=== PATIENT | male | born 1950 | race Caucasian/White ===

== ENCOUNTER 2020-01-09 09:42 | Outpatient (CLI) | payer OTHER, SELFPAY ==
[2020-01-09 10:21] LABS: Anion Gap 8 mmol/L (8-16); Blood Urea Nitrogen 14 mg/dL (9-20); Carbon Dioxide 28 mmol/L (22-30); Chloride 105 mmol/L (98-107); Cholesterol 115 mg/dL (0-200); Estimated Glomerular Filt Rate > 60; Glucose 117 mg/dL (75-110); HDL Direct 34 mg/dL; Sodium 141 mmol/L (137-145); Triglycerides 192 mg/dL (<150)
[2020-01-09 10:33] LABS: LDL Cholesterol Direct 60 mg/dL
[2020-01-09 10:55] LABS: Creatinine Urine 73.1 mg/dL
[2020-01-09 10:59] LABS: MALB Creatinine Ratio 8.8 mg/g (0-30); Microalbumin Urine Random 6.4 mg/L (0-16.7)
== END 2020-01-09 09:43 | disposition home or self-care (01) ==
PROVIDERS: PCP Family Medicine; Visit Provider Internal Medicine Endocrinology, Diabetes & Metabolism
DX: E11.9 Type 2 diabetes mellitus without complications (principal)
CPT/HCPCS: 36415; 80048; 80061; 82043; 84443

== ENCOUNTER 2020-09-09 07:34 | Outpatient (CLI) | payer OTHER, SELFPAY ==
[2020-09-11 18:16] LABS: Sex Hormone Binding Globulin 59 nmol/L (22-77)
[2020-09-12 07:20] LABS: FSH 11.4 mIU/mL (1.6-8.0); LH 4.3 mIU/mL (1.6-15.2); Prolactin 8.5 ng/mL (***)
[2020-09-12 13:41] LABS: Testosterone Free 36.3 pg/mL (6.0-73.0); Testosterone Total 457 ng/dL (250-1100)
== END 2020-09-09 07:35 | disposition home or self-care (01) ==
LOC: ANHWCLAB 07:39
PROVIDERS: PCP Family Medicine; Visit Provider Internal Medicine Endocrinology, Diabetes & Metabolism
DX: E11.65 Type 2 diabetes mellitus with hyperglycemia (principal); E29.1 Testicular hypofunction
CPT/HCPCS: 36415; 83001; 83002; 84146; 84270; 84402; 84403

== ENCOUNTER → 2020-09-19 00:51 | Outpatient (CLI) | payer OTHER, SELFPAY ==
[2020-09-19 21:02] LABS: SARS-CoV-2 RNA PCR Negative
== END ==
PROVIDERS: PCP Family Medicine; Visit Provider Internal Medicine Critical Care Medicine
DX: Z01.812 Encounter for preprocedural laboratory examination (principal); Z20.822 Contact with and (suspected) exposure to COVID-19
CPT/HCPCS: C9803; U0003; U0005

== ENCOUNTER 2020-09-22 09:06 | Outpatient (CLI) | payer OTHER, SELFPAY ==
--- NOTE | 2020-10-06 17:55 | WPDSLEEPSTUD ---
Sleep Study Date of Study: 09/22/20 Ordering Provider: Mary Castro MD Interpreting Physician: Gabby Laguerre MD Sleep Study Type: Polysomnogram Height: 1.78 m Weight: 73.482 kg Body Mass Index: 23.2 Neck Circumference (inches): 15 [place]: 4 Reason for Sleep Study Snoring, tired in the daytime with excessive daytime sleepiness Sleep History Gonzalo Coleman is a 70 year old man with occasional snoring which is occasionally loud enough that others complain about it. He does not awaken from sleep feeling short of breath or awaken at night with heartburn belching or coughing. He rarely has trouble sleep with a cold. He does not wake up gasping for breath at night. He rarely has breathing problems at night observed by others. He does not sweat excessively at night. He does not notice his heart pounding or beating irregularly at night. He does not fall asleep during the day, does not fall asleep involuntarily and does not fall asleep while driving. He does not fall asleep while exerting physical effort. There is no loss of muscle tone with strong emotion. He does not have daytime difficulties due to excessive sleepiness although he is tired in the day and has excessive sleepiness in the day on occasion. He does not feel paralyzed on waking or falling asleep. He does not have vivid dreamlike scenes upon awakening or falling asleep. He does not feel afraid to go to sleep. He does not have nightmares. He occasionally remembers his dreams. He does not have racing thoughts, feelings of sadness, depression or anxiety. He does not have muscular tension. He does not notice part of his body jerking. He does not kick at night. He does not have crawling and aching feelings in his legs and does not have any kind of leg pain at night. He does not have morning jaw pain. He does not grind his teeth during sleep. He is not bothered by pain during the day. He is not awakened by pain at night. He does not wake up feeling stiff in the morning with sore achy muscles. He does not wake up with pain in the neck and spine. He has testicular hypofunction with decreased libido. Normal bedtime is between 10:00 p.m. and 12 midnight taking 30 minutes to fall asleep. He typically wakes 2-3 times to urinate. He takes Jardiance which contributes to his nocturia through its effects as an osmotic diuretic. He returns to bed and it takes about a 1/2 hour to return to sleep. He wakes the morning at 7:00 a.m.. He sometimes takes a nap in the afternoon or evening. A short nap is not refreshing. He feels good in the morning most days. He feels better in the morning compared other times of day. He always awakens feeling refreshed. He rarely has excessive daytime sleepiness or memory and concentration problems. Habits: Never smoked tobacco. Caffeine 3 servings a day. Alcohol 2 servings per week. No recreational drugs. [facility] Past Medical History Medical History (Updated 10/06/20 @ 18:41 by Gabby Laguerre MD) CAD (coronary artery disease), [place] coronary artery HTN (hypertension) Hypersomnia Type 2 diabetes mellitus with hyperglycemia, without long-term current use of insulin Surgical History Surgical History (Updated 10/06/20 @ 18:26 by Gabby Laguerre MD) History of ankle surgery S/P CABG x 3 Family History Family History Mother Family history of cardiovascular disease Sibling Family history of cardiovascular disease Father Family history of dementia Social History Social History Years smoked: 3 Smoking status: Former smoker Tobacco type: cigarettes Second hand tobacco smoke exposure: No Smoking end date: 05/30/1968 Alcohol intake: current Medications Home Medications Medication Instructions Recorded Confirmed Type ascorbate calcium-bioflavonoid tablet PO 05/21/19 02/12/20 History 1,000 mg-200 mg ta
[2020-10-06 18:51] VITALS: BMI 23.2
== END 2020-09-22 09:07 | disposition home or self-care (01) ==
LOC: ANHCSM 09:07
PROVIDERS: PCP Family Medicine; Visit Provider Internal Medicine Endocrinology, Diabetes & Metabolism
DX: G47.10 Hypersomnia, unspecified (principal); R06.83 Snoring; G25.81 Restless legs syndrome; G47.34 Idiopathic sleep related nonobstructive alveolar hypoventilation
CPT/HCPCS: 95810

== ENCOUNTER 2020-11-03 10:45 | Outpatient (RCR) | payer OTHER, SELFPAY ==
[2020-10-15 11:11] VITALS: BMI 23.6
[2020-10-15 11:17] VITALS: BMI 23.6
== END 2020-12-29 12:05 | disposition home or self-care (01) ==
LOC: ANHDMC 10:45
PROVIDERS: PCP Family Medicine; Visit Provider Internal Medicine Endocrinology, Diabetes & Metabolism
DX: E11.65 Type 2 diabetes mellitus with hyperglycemia (principal); Z71.3 Dietary counseling and surveillance; Z71.89 Other specified counseling
CPT/HCPCS: 97802; G0108

== ENCOUNTER 2021-02-12 10:10 | Outpatient (CLI) | payer OTHER, SELFPAY ==
[2021-02-12 19:46] LABS: Basophils Percent Auto 0.5 % (0.2-1.2); Eosinophils Absolute Auto 0.1 K/mm3 (0-0.3); Eosinophils Percent Auto 1.4 % (0-4.4); Hematocrit 53.5 % (42.0-52.0); Hemoglobin 17.8 g/dL (14.0-18.0); Immature Granulocyte Absolute 0.02 K/mm3 (0.00-0.031); Immature Granulocyte Percent A 0.3 % (0-0.5); Lymphocytes Absolute Auto 1.44 K/mm3 (0.9-3.2); Lymphocytes Percent Auto 22.9 % (18.3-44.2); Mean Corpuscular HGB Conc 33.3 g/dl (32-36); Mean Corpuscular Hemoglobin 30.5 pg (26-34); Mean Corpuscular Volume 91.8 fl (80-100); Monocytes Absolute Auto 0.5 K/mm3 (0.1-0.6); Monocytes Percent Auto 7.3 % (2.6-8.5); Neutrophils Absolute Auto 4.3 K/mm3 (1.3-6.7); Neutrophils Percent Auto 67.6 % (45.5-73.1); Platelet Count Result 150 k/mm3 (150-375); Red Blood Count 5.83 M/mm3 (4.6-6.20); Red Cell Distribution Width 12.8 % (11.5-14.5); White Blood Count 6.3 K/mm3 (4.5-10.0)
[2021-02-12 20:11] LABS: Alanine Aminotransferase 29 U/L (4-50); Albumin Level 4.9 g/dL (3.5-5.1); Alkaline Phosphatase 84 U/L (38-126); Anion Gap 13 mmol/L (8-16); Aspartate Amino Transferase 29 U/L (17-59); Bilirubin,Total 1.2 mg/dL (0.2-1.3); Blood Urea Nitrogen 18 mg/dL (9-20); Calcium 10.2 mg/dL (8.4-10.2); Carbon Dioxide 26 mmol/L (22-30); Chloride 106 mmol/L (98-107); Cholesterol 137 mg/dL (0-200); Estimated Glomerular Filt Rate > 60; Glucose 138 mg/dL (65-110); HDL Direct 41 mg/dL; Potassium 4.3 mmol/L (3.4-5.0); Sodium 145 mmol/L (137-145); Triglycerides 211 mg/dL (<150)
[2021-02-12 20:21] LABS: Hemoglobin A1C 6.9 % (<5.7)
[2021-02-12 20:23] LABS: LDL Cholesterol Direct 59 mg/dL
[2021-02-12 20:35] LABS: Creatinine Urine 61.4 mg/dL
[2021-02-12 20:39] LABS: Prostate Specific Antigen 0.4 ng/mL (< OR = 4.0)
[2021-02-12 20:40] LABS: MALB Creatinine Ratio 10.1 mg/g (0-30); Microalbumin Urine Random 6.2 mg/L (0-16.7)
[2021-02-12 21:05] LABS: Vitamin D 25 Hydroxy 73.6 ng/mL
== END 2021-02-12 10:11 | disposition home or self-care (01) ==
PROVIDERS: PCP Family Medicine; Visit Provider Family Medicine
DX: Z12.5 Encounter for screening for malignant neoplasm of prostate (principal); I25.10 Atherosclerotic heart disease of native coronary artery without angina pectoris; R79.89 Other specified abnormal findings of blood chemistry; I10 Essential (primary) hypertension; E11.65 Type 2 diabetes mellitus with hyperglycemia; Z51.81 Encounter for therapeutic drug level monitoring; Z79.899 Other long term (current) drug therapy
CPT/HCPCS: 36415; 80053; 80061; 82043; 82306; 83036; 84153; 85025; G0103

== ENCOUNTER 2021-04-08 02:35 | Day surgery (SDC) | payer OTHER, SELFPAY ==
[2021-03-26 12:43] VITALS: BMI 25.9
--- NOTE | 2021-04-07 13:36 | PM.HPGS ---
History of Present Illness History of Present Illness Consent: Risks, benefits, and alternatives have been discussed and questions answered. Patient agrees to proceed with procedure. Chief complaint: neoplasm screening Narrative: Gonzalo Coleman is a 71 year old male referred for colon cancer screening Review of Systems Review of Systems: All systems reviewed & are unremarkable except as noted in HPI and below PMFSH Past Medical History Medical History CAD (coronary artery disease), [place] coronary artery HTN (hypertension) Hypersomnia Type 2 diabetes mellitus with hyperglycemia, without long-term current use of insulin Surgical History Surgical History History of ankle surgery S/P CABG x 3 Family History Family History Mother Family history of cardiovascular disease Sibling Family history of cardiovascular disease Father Family history of dementia Social History Social History Smoking packs per day: 1 Smoking cigarettes per day: 20.0 Years smoked: 4 Smoking pack-years: 4.00 Smoking status: Former smoker Tobacco type: cigarettes Second hand tobacco smoke exposure: No Smoking end date: 05/30/1968 Alcohol intake: current Drinks per week: 1 Living arrangements: with family Spiritual care concerns: No Meds Home Medications and Allergies Home Medications Medication Instructions Recorded Confirmed Type aspirin 81 mg tablet,delayed 81 mg PO DAILY 05/21/19 03/26/21 History release cholecalciferol (vitamin D3) 125 5,000 unit PO DAILY 05/21/19 03/26/21 History mcg (5,000 unit) disintegrating tablet ginseng 100 mg capsule 100 mg PO DAILY 05/21/19 03/26/21 History multivitamin 1 tablet PO DAILY 05/21/19 03/26/21 History rosuvastatin 20 mg tablet 20 mg PO DAILY 05/21/19 03/26/21 History glucosamine [id number] 1 tablet PO DAILY 02/12/20 03/26/21 History christofer 1,500 mg-400 unit-100 mg tablet glipizide 2.5 mg tablet, extended 2.5 mg PO DAILY #180 tablet 09/03/20 03/26/21 Rx release 24 hr lancets See Rx Instructions .ROUTE 09/10/20 03/26/21 Rx .COMPLEX #100 ea amlodipine 10 mg tablet 10 mg PO DAILY #90 tablet 11/07/20 03/26/21 Rx empagliflozin 10 mg tablet 5 mg PO DAILY tablet 02/12/21 03/26/21 History blood sugar diagnostic #100 each 03/02/21 Rx lisinopril 10 mg tablet 10 mg PO DAILY #90 tablet 03/02/21 03/26/21 Rx metoprolol tartrate 25 mg tablet 25 mg PO BID #180 tablet 03/25/21 03/26/21 Rx Allergies Allergy/AdvReac Type Severity Reaction Status Date / Time codeine Allergy Unknown Nausea and Verified 04/08/21 11:26 Vomiting metformin Allergy Unknown Diarrhea Verified 04/08/21 11:26 Exam Resp: Auscultation: clear to auscultation bilaterally Cardio: Rate: regular rate Rhythm: regular rhythm GI: GI Palp: Yes Soft to palpation and No Tenderness to palpation present (GI) Assessment and Plan Assessment and plan (1) Colon cancer screening: Code(s): Z12.11 - Encounter for screening for malignant neoplasm of colon Status: Acute Assessment and Plan: Colonoscopy with possible biopsy or polypectomy or cautery or injection of substances.
[2021-04-08] MEDS: LACTATED RINGERS 1,000 ML 150 ML IV CONT (11:30)
[2021-04-08 11:37] LABS: Glucose Point of Care 143 mg/dl (65-105)
--- NOTE | 2021-04-08 12:16 | WPDANESEPPF ---
Anes - Initial Pre Proc Eval Procedure: Operation Date: 04/08/21 12:30 Proposed Procedures p Screening Colonoscopy - Barrett Kraus MD Date/Time: 04/08/21 12:16 Surgeon: Barrett Kraus MD Pre Op Diagnosis: neoplasm screening Patient Data Age: 71 Gender: M Height: 1.78 m Weight: 75.1 kg Allergies Allergy/AdvReac Type Severity Reaction Status Date / Time codeine Allergy Unknown Nausea and Verified 04/08/21 11:26 Vomiting metformin Allergy Unknown Diarrhea Verified 04/08/21 11:26 Home Medications Medication Instructions Recorded Confirmed Type aspirin 81 mg tablet,delayed 81 mg PO DAILY 05/21/19 03/26/21 History release cholecalciferol (vitamin D3) 125 5,000 unit PO DAILY 05/21/19 03/26/21 History mcg (5,000 unit) disintegrating tablet ginseng 100 mg capsule 100 mg PO DAILY 05/21/19 03/26/21 History multivitamin 1 tablet PO DAILY 05/21/19 03/26/21 History rosuvastatin 20 mg tablet 20 mg PO DAILY 05/21/19 03/26/21 History glucosamine [id number] 1 tablet PO DAILY 02/12/20 03/26/21 History christofer 1,500 mg-400 unit-100 mg tablet glipizide 2.5 mg tablet, extended 2.5 mg PO DAILY #180 tablet 09/03/20 03/26/21 Rx release 24 hr lancets See Rx Instructions .ROUTE 09/10/20 03/26/21 Rx .COMPLEX #100 ea amlodipine 10 mg tablet 10 mg PO DAILY #90 tablet 11/07/20 03/26/21 Rx empagliflozin 10 mg tablet 5 mg PO DAILY tablet 02/12/21 03/26/21 History blood sugar diagnostic #100 each 03/02/21 Rx lisinopril 10 mg tablet 10 mg PO DAILY #90 tablet 03/02/21 03/26/21 Rx metoprolol tartrate 25 mg tablet 25 mg PO BID #180 tablet 03/25/21 03/26/21 Rx Laboratory Tests 04/08/21 11:34 POC Capillary Glucose 143 mg/dl H mg/dl (65-105) Patient hx anesthesia problems: none Family hx anesthesia problems: none Results Review: All pre-operative results and documents have been reviewed as part of the pre-operative evaluation. PMFSH Past Medical History Medical History CAD (coronary artery disease), [place] coronary artery HTN (hypertension) Hypersomnia Type 2 diabetes mellitus with hyperglycemia, without long-term current use of insulin Surgical History Surgical History History of ankle surgery S/P CABG x 3 Family History Family History Mother Family history of cardiovascular disease Sibling Family history of cardiovascular disease Father Family history of dementia Social History Social History Smoking packs per day: 1 Smoking cigarettes per day: 20.0 Years smoked: 4 Smoking pack-years: 4.00 Smoking status: Former smoker Tobacco type: cigarettes Second hand tobacco smoke exposure: No Smoking end date: 05/30/1968 Alcohol intake: current Drinks per week: 1 Living arrangements: with family Spiritual care concerns: No Anes - Eval Final PreProcedure Day of Procedure 04/08/21 12:16 Patient weight: normal Heart: regular rate and rhythm Lungs: clear to auscultation and normal air movement Airway: Mallampati scale class II Neurological: alert and oriented Last oral intake: >/= 8 hours ASA classification: III Emergent: no Anesthetic plan: proceed Anesthesia type and monitoring: general GIVS Results Review: All pre-operative results and documents have been reviewed as part of the pre-operative evaluation. Informed Consent: The patient's anesthetic plan and its attendant risks and benefits were discussed with the patient/family/POA. Questions were solicited and answers provided to the satisfaction of the patient/family/POA.
[2021-04-08 12:37] VITALS: BP 93/57; PULSE 70; RESP 15; O2SAT 99
[2021-04-08 12:47] VITALS: BP 141/78; PULSE 67; RESP 29; O2SAT 100
[2021-04-08 12:57] VITALS: BP 138/81; PULSE 65; RESP 23; O2SAT 100
== END 2021-04-08 13:08 | disposition home or self-care (01) ==
PROVIDERS: PCP Family Medicine; Visit Provider Internal Medicine Gastroenterology
PROC: 0DJD8ZZ Inspection of Lower Intestinal Tract, Via Natural or Artificial Opening Endoscopic (ICD-10-PCS; CPT 45378; principal; 2021-04-08 12:30)
DX: Z12.11 Encounter for screening for malignant neoplasm of colon (principal); K57.30 Diverticulosis of large intestine without perforation or abscess without bleeding; I25.10 Atherosclerotic heart disease of native coronary artery without angina pectoris; I10 Essential (primary) hypertension; E11.9 Type 2 diabetes mellitus without complications; Z95.1 Presence of aortocoronary bypass graft; Z87.891 Personal history of nicotine dependence; Z79.82 Long term (current) use of aspirin; Z79.84 Long term (current) use of oral hypoglycemic drugs
CPT/HCPCS: G0121; 82948; J2704; J7120

== ENCOUNTER 2023-01-12 07:55 | Outpatient (CLI) | payer OTHER, SELFPAY | END 2023-01-12 07:56 | disposition home or self-care (01) | LOC: ANHAUDASC 07:56 | PROVIDERS: PCP Family Medicine; Visit Provider Family Medicine | DX: H91.90 Unspecified hearing loss, unspecified ear (principal) | CPT/HCPCS: 92557; 92567 ==

== ENCOUNTER 2023-07-13 10:00 | Outpatient (RCR) | payer OTHER, SELFPAY | END 2023-08-30 23:59 | disposition home or self-care (01) | LOC: ANHAUDASC 10:00 | PROVIDERS: PCP Family Medicine; Visit Provider Family Medicine | DX: Z46.1 Encounter for fitting and adjustment of hearing aid (principal) | CPT/HCPCS: 99199; V5261 ==

== ENCOUNTER 2024-12-20 07:38 | Outpatient (CLI) | payer OTHER, SELFPAY ==
--- NOTE | 2024-12-20 | EST_ITS ---
Patient Info Name: Gonzalo Coleman Age: 74 years : 1950 Gender: Male Ht: 70 in Wt: 168 lbs BSA: 1.95 m2 Exam Date: 12/20/2024 8:24 AM Patient Status: O Admit Date: 12/20/2024 Exam Type: CA stress buddy w NM A regadenoson stress test was performed. Staff Referring Physician: Herman Julian MD Attending Provider: Herman Julian MD Exercise Technologist: Charlene Teran Exercise Physician: Aakash Hameed Summary 1. No abnormal ST-T wave changes with lexiscan. 2. Please correlate with nuclear medicine images, reported separately. Protocol: Lexiscan Stress ECG Details Stage: REST Duration (min): 0 min : 48 sec HR (bpm): 72 SBP (mmHg): 142 DBP (mmHg): 82 Stage: REST Duration (min): 8 min : 11 sec HR (bpm): 75 SBP (mmHg): 142 DBP (mmHg): 82 Stage: STAGE 1 Duration (min): 0 min : 59 sec HR (bpm): 80 SBP (mmHg): 168 DBP (mmHg): 74 Stage: RECOVERY Duration (min): 1 min : 0 sec HR (bpm): 93 SBP (mmHg): 168 DBP (mmHg): 74 Stage: RECOVERY Duration (min): 2 min : 0 sec HR (bpm): 86 SBP (mmHg): 170 DBP (mmHg): 74 Stage: RECOVERY Duration (min): 3 min : 0 sec HR (bpm): 86 SBP (mmHg): 165 DBP (mmHg): 77 Stage: RECOVERY Duration (min): 3 min : 3 sec HR (bpm): 88 SBP (mmHg): 165 DBP (mmHg): 77 Rest HR: 75 bpm Peak HR: 95 bpm Rest Sys BP: 142 mmHg Peak Sys BP: 170 mmHg Max Pred HR: 145 bpm % Max Pred HR: 66 % Target HR: 123 bpm Max RPP: 16,150 bpm*mmHg Total Time: 1 min : 0 sec Rest Abdalla BP: 82 mmHg Peak Abdalla BP: 74 mmHg Total Dose: 0.4 mg Resting ECG Sinus rhythm. Right bundle branch block with repolarization changes. Low limb lead voltage. Stress ECG No ischemic ST-T wave changes. Arrhythmias Occasional premature atrial contractions. Report Signatures
--- NOTE | ~2024-12-20 | NM_ITS ---
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 The patient was infused intravenously with Lexiscan (Regadenoson). Then, 32.0 mCi Tc99 m tetrofosmin (Myoview) was administered intravenously, and stress images were obtained, initially in the supine position with repeat post stress images obtained in the prone position. Data was reconstr ucted into short axis and horizontal and vertical long axis SPECT images. Gated SPECT images were als o obtained. COMPARISON: None. FINDINGS: There is a region of moderate reversible decreased perfusion at the basilar inferior segmen t portion of the adjacent mid inferior segments consistent with ischemia. Artifactual regions of decr eased perfusion involving portions of the anterior and anterolateral lazaro on the post stress imaging obtained in the supine position which normalized with prone imaging. There is normal left ventricul ar chamber size and ejection fraction measuring >70%. There is paradoxical septal motion and suggesti on of right ventricular enlargement. IMPRESSION: 1. Region moderate reversible ischemia at the basilar inferior and portions of the adjacent mid infer ior segments. No nonreversible infarct. 2.Left ventricular ejection fraction measuring >70%. 3. Paradoxical septal motion. 4. Suggestion of right ventricular enlargement. Reviewed, dictated and finalized at location A. IMPRESSION: 1. Region moderate reversible ischemia at the basilar inferior and portions of the adjacent mid inferior segments. No nonreversible infarct. 2.Left ventricular ejection fraction measuring >70%. 3. Paradoxical septal motion. 4. Suggestion of right ventricular enlargement.
--- OUTSIDE RECORDS SUMMARY | 2024-12-20 07:42 | XMS_ITS | Clinical Summary ---
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 Name Role Phone Kimo Barakat MD Primary Care Provider [phone] Allergies Active Allergy Reactions Criticality Noted Date Comments Codeine Nausea only,Nausea And Vomiting Low 06/30 Medications aspirin 81 mg tablet take 1 tablet by oral route every day 0 0 4 Active multivitamin tablet tablet take 1 tablet by oral route every day with food 0 0 5 Active amLODIPine (NORVASC) 10 mg tablet take 1 tablet by oral route every day 90 3 5 Active metoprolol (LOPRESSOR) 25 mg tablet take 1 tablet by ORAL route 2 times every day 180 3 4 Active lisinopril (PRINIVIL,ZESTR IL) 10 mg tablet take 1 tablet by oral route every day 90 3 5 Active cholecalciferol (VITAMIN D-3) 5,000 unit capsule Take 1 capsule (5,000 Units total) by mouth daily Active turmeric, bulk, 95 % powder Active vit C/E/Zn/coppr/gonzalo tein/zeaxan (PRESERVISION AREDS-2 ORAL) Take by mouth Ac tive Jardiance 25 mg tablet Take 0.5 tablets (12.5 mg total) by mouth every morning 1 Active zinc 50 mg tablet Take by mouth Active C-Zn-K.ginseng- darrion hips-hrb62 75 mg tablet Take by mouth Ginseng Complex Active glucosamine-cho ndroitin 250-200 mg tablet Take by mouth Osteo bi-flex Active UNABLE TO FIND Total Beets 650 mg in the evening Active rosuvastatin (CRESTOR) 20 mg tablet Take 1 tablet (20 mg total) by mouth every other day 90 tablet 1 5 Active Additional Information Patient taking differently:20 mg oralDaily, Reported on 10/30/2024 glipiZIDE XL (GLUCOTROL XL) 5 mg 24 hr tablet Take 1 tablet (5 mg total) by mouth daily 5 Active Active Problems Problem Noted Date Diagnosed Date Pulmonary hypertension 10/30/2024 RBBB 11/15/2018 Premature atrial contractions 11/15/2018 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 Coronary artery disease invo lving [place] coronary artery of [place] heart without angina pectoris 11/08/2016 Statin intolerance 11/08/2016 Type 2 diabetes mellitus 10/21/2015 Overview (09/03/2016): DM type 2 with diabetic dyslipidemia Hx of CABG 10/18/2013 Overview (09/03/2016): S/P CABG (coronary artery bypass graft) Mixed diabetic hyperlipidemi a associated with type 2 diabetes mellitus (CMS/HCC) 10/18/2013 Overview (09/03/2016): Dyslipidemia Hypertension associated with diabetes 10/18/2013 Overview (09/03/2016): HTN (hypertension), benign Diabetes mellitus 10/18/2013 Overview (09/03/2016): DM (diabetes mellitus) Encounters Date Type Department Care Team Description 12/04/2024 Results Follow-Up [facility] Cardiology [address] [facility] [address] [place] [phone] Krista Cleary MD Transthoracic Echo (TTE) Complete W Doppler/CF 12/03/2024 11:15 AM CDT Ancillary Procedure [facility] Cardiology [address] [place] [phone] RBBB; Hypertension associated with diabetes (HCC); Coronary artery disease involving [place] coronary artery of [place] heart without angina pectoris; Pulmonary hypertension (HCC) 10/30/2024 10:15 AM CDT Office Visit [facility] Cardiology [address] [place] [address] Krista Cleary MD RBBB (Primary Dx); Type 2 diabetes mellitus with hyperglycemia, unspecified whether retirement insulin use (HCC); Premature atrial contractions; Mixed diabetic hyperlipidemia associated with type 2 diabetes mellitus (CMS/HCC) (HCC); Hypertension associated with diabetes (HCC); Coronary artery disease involving [place] coronary artery of [place] heart without angina pectoris; Statin myopathy; Pulmonary hypertension (HCC) from Last 3 Months Immunizations Immunization Administration Dates Next Due Influenza, Trivalent, IM (MDV) 04/26/2010 Td, adsorbed 04/26/2010 Medical History Medical History Date Comments Hx Other Medical 1992 eye surgery Hx Other Medical 2006 mulqueeny Hyperlipidemia Hyperlipidemia Diabetes mellitus (HCC) Diabetes Hypertension Hypertension Family History Medical History Relation Name Comments Hyperlipidemia Brother 2 Hyperlipidemi a; Brain cancer Brother 3 Brain tumor; Other Brother 4 Alive and well; Alzheimer's disease Father Alzheime r's Disease; Cause of : Alzheimer's Disease/Alzheimer's disease; Heart disease Mother Heart disease; Valvular heart disease Mother Valvu lar heart disease; Other Sister 2 Alive and well; Relation Name Status Comments Brother 1 Alive Brother 2 Brother 3 Brother 4 Father (Age 69) Mother Sister 1 Alive Sister 2 Social History Tobacco Use Types Packs/Day Years Used Date Smoking Tobacco: Former Cigarettes Smokeless Tobacco: Never Tobacco Cessation:Counseling Given: Not Answered Alcohol Use Standard Drinks/Week Comments Yes 3 (1 standard drink = 0.6 oz pur e alcohol) Sex and Gender Information Value Date Recorded Sex Assigned at Not on file Legal Sex 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 Gender Identity Not on file Sexual Orientation Not on file Obstetrics History Last Filed Vital Signs Vital Sign Reading Time Taken Comments Blood Pressure 130/68 10/30/2024 10:11 AM CDT Pulse 84 10/30/2024 10:11 AM CDT Temperature 36.4 C (97.5 F) 04/30/2020 9:13 AM 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 Respiratory Rate - - Oxygen Saturation 97% 10/30/2024 10:11 AM CDT Inhaled Oxygen Concentration - - Weight 76.2 kg (168 lb) 10/30/2024 10:11 AM CDT Height 177.8 cm (5' 10) 10/30/2024 10:11 AM CDT Body Mass Index 24.11 10/30/2024 10:11 AM CDT Plan of Treatment Health Maintenance Due Date Last Done Comments Albumin Creatinine Ratio, Urine 1950 Colon Cancer Screening-Colonoscopy 1950 Depression Screening 1950 Fall Risk Assessment 1950 Hemoglobin A1C 1950 Hepatitis C Screening 1950 eGFR 1950 Dilated Eye Exam 1950 Foot Exam 1950 Hepatitis B Screening 1967 Zoster Vaccine (1 of 2) 1999 DTaP/Tdap/Td Vaccine (1 - Tdap) 04/27/2010 0 Abdominal Aortic Aneurysm (A AA) Screen 2014 Well Visit 65+ 2014 Pneumococcal vaccine 65+ (2 of 2 - PCV) 07/14/2014 07/14/2013 Influenza Vaccine (#1) 2025 0, 07/14/2013, 04/26/2010 Lipid Panel 10/30/2025 10/30/2024, 09/29, 10/12/2022, Additional history exists Procedures Procedure Name Priority Date/Time Associated Diagnosis Comments TRANSTHORACIC ECHO (TTE) COMPLETE W DOPPLER/CF WO CONTRAST Routine 12/03/2024 12:10 PM CDT RBBB Hypertension associated with diabetes (HCC) Coronary artery disease involving [place] coronary artery of [place] heart without angina pectoris Pulmonary hypertension (HCC) ELECTROCARDIOGRAM REPORT Routine 025 12:54 PM CDT RBBB Coronary artery disease involving [place] coronary artery of [place] heart without angina pectoris POCT LIPID PANEL Routine 10/30/2024 10:0 8 AM CDT Mixed diabetic hyperlipidemia associated with type 2 diabetes mellitus (CMS/HCC) (HCC) Coronary artery disease involving [place] coronary artery of [place] heart without angina pectoris from Last 3 Months Results * TRANSTHORACIC ECHO (TTE) COMPLETE W DOPPLER/CF WO CONTRAST (12/03/2024 12:10 PM CDT) EF Mod BP 71 % CONS SCIMAGE Anatomical Region Laterality Modality Ultrasound 12/03/2024 11:2 6 AM CDT Narrative 12/03/2024 12:47 PM CDT [facility] Cardiology [address], [place] [address] [address] [facility] [address], [place] [address] P:[phone] P:[phone] Echocardiographic Report Patient Name: CYRUS COLEMAN L : 1950 Study Date: 12/03/2024 11:26:49 AM Gender: M 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 With Strain Analysis. 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 MEASUREMENTS: 2D/MM Value Range Doppler Value Range EF Mod BP 71 % [ 52 - 72 ] MIRIAM Vmax 2.97 cm2 [ 2.00 - 4.00 ] LV GLS -16.70 % AV Mean PG 3 mmHg LVIDd 2D 3.89 cm [ 4.20 - 5.80 ] AV Peak Berto 1.13 m/s [ 1.00 - 1.70 ] LVIDs 2D 2.29 cm [ 2.50 - 4.00 ] AV Peak PG 5 mmHg LVPWd 2D 1.16 cm [ 0.60 - 1.00 ] AV VTI 20.45 cm IVSd 2D 1.30 cm [ 0.60 - 1.00 ] LVOT Diam 2.03 cm [ 1.70 - 2.10 ] AoR Diam 2D 3.72 cm [ 3.10 - 3.70 ] LVOT Peak Berto 1.03 m/s [ 0.70 - 1.10 ] LA Volume 46.59 ml [ 18.00 - 58.00 ] LVOT VTI 22.78 cm LA Volume Index 24 cc/m2 [ 16 - 28 ] MV E Peak Berto 0.84 m/s [ 0.60 - 1.30 ] RA Volume 28.33 ml MV A Peak Berto 0.72 m/s [ 1.00 - 1.20 ] MV Decel Time 188 msec [ 104 - 258 ] PV Peak Berto 0.86 m/s [ 0.40 - 0.80 ] TR Peak Berto 2.57 m/s [ 1.00 - 2.80 ] TR Peak PG 26 mmHg RVSP 31.00 mmHg [ 10.00 - 36.00 ] RV S` 7.69 mmHg Lateral E` 0.08 m/s [ 0.10 - 0.15 ] Septal E` 0.06 m/s [ 0.08 - 0.15 ] E` 0.07 m/s E/E` 12 Tapse 1.81 cm [ 1.71 - 5.00 ] 2D/MM Value Range Doppler Value Range - FINDINGS: Interpretation Site: Exam was interpreted at [facility]. Left Ventricle: Normal left ventricular systolic function. No focal wall motion abnormalities. Normal left ventricular size. Mild concentric left ventricular hypertrophy. There is pseudonormal diastolic dysfunction Grade II. Ejection fraction is measured at 71 %. Global Longitudinal Strain is -17 %. GLS is abnormal. Right Ventricle: Normal right ventricular size. Normal right ventricular systolic function. Left Atrium: The left atrium is normal in size. Right Atrium: The right atrium is normal in size. Atrial Septum: Normal atrial septum. Mitral Valve: Normal appearance of the mitral valve. No mitral valve regurgitation is seen. There is no hemodynamically significant mitral stenosis by Doppler. Aortic Valve: No evidence of hemodynamically significant aortic stenosis by Doppler. Aortic cusps appear mildly sclerotic. Trileaflet aortic valve. No aortic regurgitation. Tricuspid Valve: Normal appearance of the tricuspid valve. Estimated peak RVSP is 31 mmHg. Mild tricuspid regurgitation. Pulmonic Valve: Normal appearance of the pulmonic valve. Mild pulmonic regurgitation. Pericardium: Normal pericardium with no significant pericardial effusion. Aorta: Sinus of Valsalva is normal. IVC: Normal size and normal respiratory collapse consistent with normal right atrial pressure (<5 mmHg). Pulmonary Artery: Normal pulmonary artery size. CONCLUSIONS: Normal left ventricular systolic function. No focal wall motion abnormalities. Normal left ventricular size. Mild concentric left ventricular hypertrophy. There is pseudonormal diastolic dysfunction Grade II. Ejection fraction is measured at 71 %. Global Longitudinal Strain is -17 %. GLS is abnormal. Estimated peak RVSP is 31 mmHg. Mild tricuspid regurgitation. Mild pulmonic regurgitation. Electronically Signed By: Dr. 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 With Strain Analysis. INDICATIONS: I45.10 Unspecified right bundle-branch block, E11.59 Type 2 diabetesmellitus with other circulatory complications, I15.2 Hypertension secondary to endocrinedisorders, I25.10 Atherosclerotic heart disease of [place] coronary artery without anginapectoris, and I27.20 Pulmonary hypertension, unspecified. MEASUREMENTS: 2D/MM Value Range Doppler ValueRange EF Mod BP 71 % [ 52 - 72 ] MIRIAM Vmax 2.97cm2 [ 2.00 - 4.00 ] LV GLS -16.70 % AV Mean PG 3mmHg LVIDd 2D 3.89 cm [ 4.20 - 5.80 ] AV Peak Berto 1.13m/s [ 1.00 - 1.70 ] LVIDs 2D 2.29 cm [ 2.50 - 4.00 ] AV Peak PG 5mmHg LVPWd 2D 1.16 cm [ 0.60 - 1.00 ] AV VTI 20.45cm IVSd 2D 1.30 cm [ 0.60 - 1.00 ] LVOT Diam 2.03cm [ 1.70 - 2.10 ] AoR Diam 2D 3.72 cm [ 3.10 - 3.70 ] LVOT Peak Berto 1.03m/s [ 0.70 - 1.10 ] LA Volume 46.59 ml [ 18.00 - 58.00 ] LVOT VTI 22.78cm LA Volume Index 24 cc/m2 [ 16 - 28 ] MV E Peak Berto 0.84m/s [ 0.60 - 1.30 ] RA Volume 28.33 ml MV A Peak Berto 0.72m/s [ 1.00 - 1.20 ] MV Decel Time 188 msec [ 104 - 258 ] PV Peak Berto 0.86 m/s [ 0.40 - 0.80 ] TR Peak Berto 2.57 m/s [ 1.00 - 2.80 ] TR Peak PG 26 mmHg RVSP 31.00 mmHg [ 10.00 - 36.00 ] RV S` 7.69 mmHg Lateral E` 0.08 m/s [ 0.10 - 0.15 ] Septal E` 0.06 m/s [ 0.08 - 0.15 ] E` 0.07 m/s E/E` 12 Tapse 1.81 cm [ 1.71 - 5.00 ] 2D/MM Value Range Doppler ValueRange - FINDINGS: Interpretation Site: Exam was interpreted at [facility]. Left Ventricle: Normal left ventricular systolic function. No focal wall motionabnormalities. Normal left ventricular size. Mild concentric left ventricular hypertrophy. Thereis pseudonormal diastolic dysfunction Grade II. Ejection fraction is measuredat 71 %. Global Longitudinal Strain is -17 %. GLS is abnormal. Right Ventricle: Normal right ventricular size. Normal right ventricular systolicfunction. Left Atrium: The left atrium is normal in size. Right Atrium: The right atrium is normal in size. Atrial Septum: Normal atrial septum. Mitral Valve: Normal appearance of the mitral valve. No mitral valve regurgitation isseen. There is no hemodynamically significant mitral stenosis by Doppler. Aortic Valve: No evidence of hemodynamically significant aortic stenosis by Doppler.Aortic cusps appear mildly sclerotic. Trileaflet aortic valve. No aorticregurgitation. Tricuspid Valve: Normal appearance of the tricuspid valve. Estimated peak RVSP is 31 mmHg.Mild tricuspid regurgitation. Pulmonic Valve: Normal appearance of the pulmonic valve. Mild pulmonic regurgitation. Pericardium: Normal pericardium with no significant pericardial effusion. Aorta: Sinus of Valsalva is normal. IVC: Normal size and normal respiratory collapse consistent with normal rightatrial pressure (<5 mmHg). Pulmonary Artery: Normal pulmonary artery size. CONCLUSIONS: Normal left ventricular systolic function. No focal wall motionabnormalities. Normal left ventricular size. Mild concentric left ventricular hypertrophy. Thereis pseudonormal diastolic dysfunction Grade II. Ejection fraction is measuredat 71 %. Global Longitudinal Strain is -17 %. GLS is abnormal. Estimated peak RVSP is 31 mmHg. Mild tricuspid regurgitation. Mild pulmonic regurgitation. Electronically Signed By: Dr. Nathan Biggs [facility] 12/03/2024 12:46:34 PM CDT us Krista Cleary MD CV ECHO PROCEDURES Final Result * Electrocardiogram Report (10/30/2024 12:54 PM CDT) Krista Cleary MD ECG ORDERABLES Final Res ult * (ABNORMAL) POCT lipid panel (10/30/2024 10:08 AM CDT) Cholesterol, POC 120 <200 MG/DL HDL, POC 22(A) >=40 mg/dL Triglycerides, POC 293(A) <=149 mg/dL LDL Cholesterol POC 40 <=129 mg/dL Chol/HDL Ratio, POC 1.8 NONE Non-HDL Cholesterol, POC 98 NONE mg/dL Cholesterol Total, POC 120 30 - 199 mg/dL Capillary blood 10/30/2024 1 0:08 AM CDT Krista Cleary MD POINT OF CARE TEST ORDERA BLES Final Result from Last 3 Months Insurance [facility] [place] [id number] Care Teams Rolled Oats Mill Operator Relationship Specialty Start Date End Date Kimo Barakat MD PCP - General Family Practice 10/22/21
--- OUTSIDE RECORDS SUMMARY | 2024-12-20 07:42 | XMS_ITS | Referral Summary ---
Author Organization [facility] [place] [address] [place] [address] Address [address] [facility] [address] [place] [address] Care Team Providers Care Director Project Management Name Role Phone Kimo Barakat MD Primary Care Provider [phone] Encounters Date Type Department Care Team Description 12/04/2024 Results Follow-Up [facility] Cardiology [address] [place] [phone] Krista Cleary MD Transthoracic Echo (TTE) Complete W Doppler/CF 12/03/2024 11:15 AM CDT Ancillary Procedure [facility] Cardiology [address] [place] [address] [address] [place] [phone] RBBB; Hypertension associated with diabetes (HCC); Coronary artery disease involving [place] coronary artery of [place] heart without angina pectoris; Pulmonary hypertension (HCC) 10/30/2024 10:15 AM CDT Office Visit [facility] Cardiology [address] [place] [address] [place] [phone] Krista Cleary MD RBBB (Primary Dx); Type 2 diabetes mellitus with hyperglycemia, unspecified whether prison insulin use (HCC); Premature atrial contractions; Mixed diabetic hyperlipidemia associated with type 2 diabetes mellitus (CMS/HCC) (HCC); Hypertension associated with diabetes (HCC); Coronary artery disease involving [place] coronary artery of [place] heart without angina pectoris; Statin myopathy; Pulmonary hypertension (HCC) from Last 3 Months Allergies Active Allergy Reactions Criticality Noted Date [...] myopathy 05/10/2018 Coronary artery disease invo lving [place] coronary artery of [place] heart without angina pectoris 11/08/2016 Statin intolerance [...] mellitus 10/18/2013 Overview (09/03/2016): DM (diabetes mellitus) Immunizations Immunization Administration Dates Next Due Influenza, Trivalent, IM (MDV) 04/26/2010 Td, adsorbed 04/26/2010 Social History Tobacco Use Types Packs/Day Years Used Date Smoking Tobacco: Former Cigarettes Smokeless Tobacco: Never Tobacco Cessation:Counseling Given: Not Answered Alcohol Use Standard Drinks/Week Comments Yes 3 (1 standard drink = 0.6 oz pur e alcohol) Sex and Gender Information Value Date Recorded Sex Assigned at Not on file 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 Gender Identity Not on file Sexual Orientation Not on file Last Filed Vital Signs Vital Sign Reading Time Taken Comments Blood Pressure 130/68 10/30/2024 10:11 AM CDT Pulse 84 10/30/2024 10:11 AM CDT Temperature 36.4 C (97.5 F) 04/30/2020 9:13 AM LOAN INSPECTOR Respiratory Rate - - Oxygen Saturation 97% 10/30/2024 10:11 AM CDT Inhaled Oxygen Concentration - - Weight 76.2 kg (168 lb) 10/30/2024 10:11 AM CDT Height 177.8 cm (5' 10) 10/30/2024 10:11 AM CDT Body Mass Index 24.11 10/30/2024 10:11 AM CDT Plan of Treatment Not on file Procedures Procedure Name Priority Date/Time Associated Diagnosis Comments TRANSTHORACIC ECHO (TTE) COMPLETE W DOPPLER/CF WO CONTRAST Routine 12/03/2024 12:10 PM CDT RBBB Hypertension associated with diabetes (HCC) Coronary artery disease involving [place] coronary artery of [place] heart without angina pectoris Pulmonary hypertension (HCC) ELECTROCARDIOGRAM REPORT Routine 025 12:54 PM CDT RBBB Coronary artery disease involving [place] coronary artery of [place] heart without angina pectoris POCT LIPID PANEL Routine 10/30/2024 10:0 8 AM CDT Mixed diabetic hyperlipidemia associated with type 2 diabetes mellitus (CMS/HCC) (HCC) Coronary artery disease involving [place] coronary artery of [place] heart without angina pectoris from Last 3 Months Results * TRANSTHORACIC ECHO (TTE) COMPLETE W DOPPLER/CF WO CONTRAST (12/03/2024 12:10 PM CDT) EF Mod BP 71 % CONS SCIMAGE Anatomical Region Laterality Modality Ultrasound 12/03/2024 11:2 6 AM CDT Narrative 12/03/2024 12:47 PM CDT [facility] Cardiology [address] [facility] [address], [place] [address] [address] [facility] [address], [place] [address] P:[phone] P:[phone] Echocardiographic Report Patient Name: CYRUS COLEMAN L : 1950 Study Date: 12/03/2024 11:26:49 AM Gender: M Aged Or Disabled Carer: Aster Lujan)(DC), [facility] Location: [facility] Provider: KRISTA CLEARY Height(Cm): 178 BSA: [...] endocrine disorders, I25.10 Atherosclerotic heart disease of [place] coronary artery without angina pectoris, and I27.20 [...] FINDINGS: Interpretation Site: Exam was interpreted at [facility]. Left Ventricle: Normal left ventricular systolic function. [...] regurgitation. Electronically Signed By: Dr. Nathan Biggs [facility] 12/03/2024 12:46:34 PM CDT Procedure Note Nathan Biggs MD - 12/03/2024 [facility] Cardiology [address] [facility] [address], [place] [address] [address] [facility] [address] [place], [place] [address] P:[phone] P:[phone] Echocardiographic Report Patient Name: CYRUS COLEMAN L : 1950 Study Date: 12/03/2024 11:26:49 AM Gender: M Aged Or Disabled Carer: Aster Lujan)(CT), [facility] Location: [facility] Provider: KRISTA CLEARY Height(Cm): 178 BSA: 1.94 Weight(Kg): 76.2 Heart Rate: 57 BP: 130 / 68 Quality: Good Order Provider: KRISTA CLEARY PROCEDURES: Echocardiographic Report: Transthoracic echocardiogram with complete 2D, M-Mode, and color Dopplerexamination. With Strain Analysis. INDICATIONS: I45.10 Unspecified right bundle-branch block, E11.59 Type 2 diabetesmellitus with other circulatory complications, I15.2 Hypertension secondary to endocrinedisorders, I25.10 Atherosclerotic heart disease of [place] coronary artery without anginapectoris, and I27.20 Pulmonary [...] FINDINGS: Interpretation Site: Exam was interpreted at [facility]. Left Ventricle: Normal left ventricular systolic function. [...] regurgitation. Electronically Signed By: Dr. Nathan Biggs [facility] 12/03/2024 12:46:34 PM CDT Krista Cleary MD CV ECHO PROCEDURES Final [...] Final Result from Last 3 Months Insurance [facility] [place] [facility] [place] Care Teams Director Project Management Relationship Specialty Start Date End Date Kimo Barakat MD PCP - General Family Practice 10/22/21
--- OUTSIDE RECORDS SUMMARY | 2024-12-20 07:42 | XMS_ITS | Clinical Summary ---
Author Organization [facility] Address [address] [place] [address] Care Team Providers Care Ammonium Nitrate Crystallizer Name Role Phone Laura Dsouza RN Unavailable [phone] Lb Kelley MD Unavailable Unavailable Dev Lester MD Primary Care Provider [phone] Source Comments [facility],non-owned Affiliates and Associated Physician Practices is amultiple site organization consisting of ambulatory clinics and hospital sitesin [place], [place], [place] and [place]. This disclosure is being madepursuant to the Care Everywhere program and may not contain all information available regarding this patient. Last updated 18.[facility] Allergies Active Allergy Reactions Criticality Noted Date Comments Codeine Nausea and/or Vomiting 07/10/2013 Medications * Be aware that medications may not be up to date on this document. Alwaysverify current medications with the patient. aspirin 81 MG chew tablet Take 81 mg by mouth 2 times daily after meals. Active vitamin D, cholecalciferol, 1000 UNITS tablet Take 2,000 Units by mouth once daily. Active multivitamin daily (THERAGRAN) tablet Take 1 Tab by mouth daily with food. Active Biotin 2.5 MG tablets Take 2 mg by mouth once daily. Active hydrocodone-acet aminophen (NORCO) 5-325 MG tablet Take 1-2 Tabs by mouth every 6 hours as needed. 65 Tab 0 07/17/2013 Active metoprolol tartrate IR (LOPRESSOR) 25 MG tablet Take 0.5 Tabs by mouth 2 times daily. 60 Tab 3 07/17/2013 Active pravastatin (PRAVACHOL) 80 MG tablet Take 1 Tab by mouth at bedtime. 30 Tab 3 07/17/2013 Active lisinopril (PRINIVIL;ZESTRI L) 5 MG tablet Take 1 Tab by mouth at bedtime. 30 Tab 11 07/18/2013 Active acarbose (PRECOSE) 25 MG tablet Take 25 mg by mouth every 7 days. 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 Gender Identity Not on file Sexual Orientation Not on file Last Filed Vital Signs Vital Sign Reading Time Taken Comments Blood Pressure 140/80 08/29/2013 2:38 PM CDT Pulse 75 08/29/2013 2:38 PM CDT Temperature 36.6 C (97.8 F) 07/18/2013 7:30 AM COMBINATION BUILDING INSPECTOR Respiratory Rate 15 08/29/2013 2:38 PM CDT Oxygen Saturation 98% 08/29/2013 2:38 PM CDT Inhaled Oxygen Concentration 40% 07/12/2013 4 :15 PM COMBINATION BUILDING INSPECTOR Weight 73.9 kg (163 lb) 08/29/2013 2:38 PM CDT Height 177.8 cm (5' 10) 08/29/2013 2:38 PM CDT Body Mass Index 23.39 08/29/2013 2:38 PM CDT Plan of Treatment Health Maintenance Due Date Last Done Comments COLOGUARD (AGES 45-75) - COL ON CA SCREENING 1949 COLON MONITORING 1949 COLONOSCOPY - COLON CA SCREENING 1949 CT COLONOGRAPHY - COLON CA SCREENING 1949 Colorectal Cancer Screening 1949 FIT - COLON CA SCREENING 1949 FLEX SIG - COLON CA SCREENING 1949 HEPATITIS C SCREENING 03/06/1967 DTAP/TDAP/TD VACCINES (1 - Tdap) 1968 ZOSTER VACCINE (1 of 2) 1999 PNEUMOCOCCAL VACCINE 50+ (2 of 2 - PCV) 07/14/2014 07/14/2013 COVID-19 VACCINE (1 - 2024-2 5 season) 2024 Respiratory Syncytial Virus (RSV) Vaccine Pt: or over 60 yrs (1 - 1-dose 75+ series) 2024 DEPRESSION SCREENING 05/30/2024 INFLUENZA VACCINE (#1) 2025 07/14/2013 HEPATITIS B VACCINE Aged Out No longe r eligible based on patient's age to complete this topic HIB VACCINE Aged Out No longer eligi ble based on patient's age to complete this topic HPV VACCINE Aged Out No longer eligi ble based on patient's age to complete this topic MENINGOCOCCAL (Group B) VACC INE SHARED DECISION-MAKING Aged Out No longer eligibl e based on patient's age to complete this topic MENINGOCOCCAL GROUPS A/C/Y/W VACCINE Aged Out No longer eligible b ased on patient's age to complete this topic Insurance [employer] Advance Directives * Full Code (Latest Code Status on File) Date Activated Date Inactivated Comments 07/12/2013 12:29 PM 07/18/2013 1:13 PM * Full Code Date Activated Date Inactivated Comments 07/10/2013 5:47 PM 07/12/2013 12:29 PM Care Teams Ammonium Nitrate Crystallizer Relationship Specialty Start Date End Date Dev Lester MD [address] [id number] PCP - General Family Medicine 08/29/13 Laura Dsouza RN Seo Team Lead 07/11/13 Lb Kelley MD Garment Manufacturer Cardiovascular Disease 07/11/13
--- OUTSIDE RECORDS SUMMARY | 2024-12-20 07:42 | XMS_ITS | Clinical Summary ---
Author Organization [facility] Care Team Providers Care Hansard Reporter Name Role Phone Unavailable Primary Care Provider Unavailabl e Social History Tobacco Use Types Packs/Day Years Used Date Smoking Tobacco: Never Assessed Sex and Gender Information Value Date Recorded Sex Assigned at Not on file Legal Sex Male 9:33 PM CDT Gender Identity Not on file Sexual Orientation Not on file Plan of Treatment Health Maintenance Due Date Last Done Comments Hepatitis C Virus (HCV) Screening 1950 TdaP Immunization 1949 Cologuard 1994 Colonoscopy 1994 Colorectal Cancer Screening 1994 Immunochemical Fecal Occult Blood 1994 Pneumococcal Immunization (5 0+ years) (1 of 1 - PCV) 1999 Zoster Immunization (1 of 2) 1999 SARS-COV-2 Immunization ( - 2023- season) 2024 Respiratory Syncytial Virus (RSV) Immunization (Adult) (1 - 1-dose 75+ series) 2024 Influenza Immunization (#1) 2025 Hepatitis B Immunization Aged Out No longer eligible based on patient's age to complete this topic Human Papillomavirus (HPV) Immunization Aged Out No longer eligible b ased on patient's age to complete this topic Meningococcal Immunization (ACWY) Aged Out No longer eligible based on patient's age to complete this topic Rotavirus Immunization Aged Out No lo nger eligible based on patient's age to complete this topic
--- OUTSIDE RECORDS SUMMARY | 2024-12-20 07:43 | XMS_ITS | Encounter Summary ---
Author Organization [facility] Healthcare Address [address] [place] [address] Care Team Providers Care Medical Illustrator Name Role Phone Kimo Barakat MD Primary Care Provider [phone] Encounter Details Date Type Department Care Team (Latest Contact Info) Description 12/04/2024 Results Follow-Up [facility] Medical Group Cardiology [address] [facility] [address] [place] [phone] Herman Julian MD [address] [facility] [address] [place] [address] Transthoracic Echo (TTE) Complete W Doppler/CF Social History Tobacco Use Types Packs/Day Years Used Date Smoking Tobacco: Former Cigarettes Smokeless Tobacco: Never Alcohol Use Standard Drinks/Week Comments Yes 3 (1 standard drink = 0.6 oz pur e alcohol) Sex and Gender Information Value Date Recorded Sex Assigned at Not on file 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
--- OUTSIDE RECORDS SUMMARY | 2024-12-20 07:43 | XMS_ITS | Continuity of Care Document ---
Author Organization [facility] Address [address] [place] [address] [place] [phone] Phone Care Team Providers Care Log Manager Name Role Phone Heraclio OD OD, Andry [...] Providers Copied on Encounter Office/outpa tient Visit, [facility] [address] [place] [address] [address], [place], [place], [address], [place] tel:[phone] SEC 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 [address], [place], [address], [place]. tel:[phone] Referring Provider: Andry Pulliam OD P, [address] [place], [address] . tel:[phone] Office/outpa [place]ient Visit, [facility], [address], [place], [place], [id number], [place] tel:[phone] SEC [facility] No Information 2 Heraclio OD Andry. [address], [place], [address], [place]. tel:[phone] Referring Provider: Andry Pulliam OD P, [address] [facility], [place], [address] . tel:[phone] Office/outpa tient Visit, [facility], [address] [place] [address] [address], [place], [place], [address], tel:[phone] SEC [facility] No Information 8-201 0 Mulqueeny OD Andry. [address] [facility], [place], [address], [place]. tel:[phone] Referring Provider: Andry Pulliam OD P, [address] [facility], [place], [address] . tel:[phone] Office/outpa tient Visit, [facility], [address] [place] [address] [address], [place], [place], [address], [place] tel:[phone] SEC [facility] No Information 7-200 9 Mulqueeny OD Andry. [address] [facility], [place], [place], [address], [place]. tel:[phone] Referring Provider: Andry Pulliam OD P, [address] [facility], [place], [address] . tel:[phone] Office/outpa tient Visit, [facility], [address] [place] [address] [address], [place], [place], [address], [place] tel:[phone] SEC [facility] [place] No Information 8-200 9 Mulqueeny OD Andry. [address] [facility], [place], [address], [place]. tel:[phone] Referring Provider: Andry Pulliam OD P, [address] [facility], [place], [address] . tel:[phone] Office/outpa tient Visit, [facility], [address], [place], [place], [address], [place] tel:[phone] SEC [facility] No Information Mar-1 7-200 8 Mulqueeny OD Andry. [address] [facility], [place], [address], [place]. tel:[phone] Referring Provider: Andry Pulliam OD P, [address] [facility], [place], [address] . tel:[phone] [facility], [address], [place], [place], [address], [place] tel:[phone] SEC [facility] No Information 8-200 8 Mulqueeny OD Andry. [address] [facility], [place], [address], [place]. tel:[phone] Referring Provider: Andry Pulliam OD P, [address] [facility], [place], [address] . tel:[phone] [facility], [address], [place], [place], [address], [place] tel:[phone] SEC [facility] No Information 1 9-200 8 Mulqueeny OD Andry. [address] [facility], [place], [address], [place]. tel:[phone] Referring Provider: Andry Pulliam OD P, [address] [facility], [place], [address] . tel:[phone] [facility], [address], [place], [place], [address], [place] tel:[phone] SEC [facility] No Information September-0 6-200 8 Mulqueeny OD Andry. [address] [facility], [place], [address], [place]. tel:[phone] Referring Provider: Andry Pulliam OD P, [address] [facility], [place], [address] . tel:[phone] [facility], [address], [place], [place], [address], [place] tel:[phone] SEC [facility] No Information 3-200 8 Mulqueeny OD Andry. [address] [facility], [place], [place], [address], [place]. tel:[phone] Referring Provider: Andry Pulliam OD P, [address] [facility], [place], [address] . tel:[phone] [facility], [address], [place], [place], [address], [place] tel:[phone] SEC [facility] No Information 7-200 8 Mulqueeny OD Andry. [address], [place], [address], [place]. tel:[phone] Referring Provider: Andry Pulliam OD P, [address] [facility], [place], [address] . tel:[phone] [facility], [address], [place], [place], [address], [place] tel:[phone] SEC [facility] No Information 4200 8 Mulqueeny OD Andry. [address] [facility], [place], [place], [address], [place]. tel:[phone] Referring Provider: Andry Pulliam OD P, [address] [facility], [place], [address] . tel:[phone] [facility], [address], [place], [place], [address], [place] tel:[phone] SEC [facility] No Information Oct-2 2-200 7 Mulqueeny OD Andry. [address], [place], [address], [place]. tel:[phone] Referring Provider: Andry Tyvinod OD P, [address] [place], [address] . tel:[phone] [facility], [address], [place], [place], [address], [place] tel:[phone] SEC [facility] No Information Oct-0 2-200 7 Mulqueeny OD Andry. [address], [place], [address], [place]. tel:[phone] Referring Provider: Andry Pulliam OD P, [address] [place], [address] . tel:[phone] [facility], [address], [place], [place], [address], [place] tel:[phone] SEC [facility] No Information Aug-2 1-200 7 Mulqueeny OD Andry. [address], [place], [address], [place]. tel:[phone] [facility], [address], [place], [place], [address], [place] tel:[phone] SEC [facility] No Information Aug-0 1-200 7 Mulqueeny OD Andry. [address], [place], [address], [place]. tel:[phone] [facility], [address], [place], [place], [address], [place] tel:[phone] SEC [facility] No Information Reinaldo-2 4-200 7 Mulqueeny OD Andry. [address], [place], [address], . tel:[phone] [facility], [address] [place], [place] [address], [place], [place], [address], tel:[phone] SEC [facility] No Information [address] [facility] . [address] [place], [place], [address], . tel:[phone] Referring Provider: Andry Day, [address] [place], [address] . tel:[phone] [facility], [address] [place] [address] [address], [place], [place], [address], tel:[phone] SEC [facility] No Information 7 Heraclio Wilde. [address], [place], [address], . tel:[phone] Family History Family Member Type Diagnosis Age At Onset Aunt Problem (finding) glaucoma Payers Payer name Insurance type Covered democrat ID Authordenise elkins(s) Naeemtna [id number] Social History Type Description Quantity Date Captured [...]
== END 2024-12-20 07:39 | disposition home or self-care (01) ==
PROVIDERS: PCP Family Medicine; Visit Provider Internal Medicine Cardiovascular Disease
DX: I25.10 Atherosclerotic heart disease of native coronary artery without angina pectoris (principal)
CPT/HCPCS: 78452; 93017; A9502; J2785

== ENCOUNTER 2025-01-25 07:44 | Outpatient (CLI) | payer OTHER, SELFPAY ==
--- OUTSIDE RECORDS SUMMARY | 2013-05-15 09:30 | XMS_ITS | Continuity of Care Document ---
[facility] [place] [facility] [place] [id number] [place] [address] [place] [phone] Phone Care Team Providers Care Fusion Juncture Grinder Name Role Phone Heraclio OD OD, Andry Unavailable Unavailabl e Allergies, Adverse Reactions, Alerts Substance Reaction Status Criticality codeine nausea Active No Information Medications Medication Instructions Dosage Effective Dates (start - stop) Status Comments amlodipine 10 mg tablet take 1 tablet (10MG) by oral route every day 10 MG - Active lisinopril 10 mg tablet take 1 tablet (10MG) by oral route every day 10 MG - Active simvastatin 5 mg tablet take 1 tablet (5MG) by oral route every day in the evening 5 MG - Active Procedures Procedure Date Office/outpatient Visit, Est Fundus Photography W/ Report Refraction Office/outpatient Visit, Est No Charge No Refraction Refraction Office/outpatient Visit, Est Fundus Photography W/ Report Refraction Office/outpatient Visit, Est Refraction Office/outpatient Visit, Est Office/outpatient Visit, Est Fundus Photography W/ Report QuantifEye Eye Exam Established Pt No Charge Contact Lens Check Contact Lens Fitting Post-op Follow-up Visit Corneal Topography Post-op Follow-up Visit HydroEye Tax - Medical Post-op Follow-up Visit Post-op Follow-up Visit Post-op Follow-up Visit Post-op Follow-up Visit Post-op Follow-up Visit Post-op Follow-up Visit PRK Refractive Consult Advance Directives Directive Yes / No Effective Date File Name Resuscitation Not Answered N/A N/A Life Support Not Answered N/A N/A Intubation Not Answered N/A N/A Antibiotics Not Answered N/A N/A IV Fluid Support Not Answered N/A N/A Tube Feed Not Answered N/A N/A Other Directive N/A N/A WARNING:The information contained in this section is historical and is provided for information only and does not constitute a legal document or any assurance that the information is still accurate. Please verify the information with the quiñones of the legal document before using it for clinical purposes. Encounters Encounter Description Practice Location Reason(s) For Visit Diagnoses Date Provider Providers Copied on Encounter Office/outpa tient Visit, [facility] [place], [id number] [place] [address] [address], [place], [place], [id number], [place] tel:[phone] [facility] DMII OPHTH NT ST UNCNTRLPAVING STONE DEGENERATPRESBYOPI A 3 Heraclio OD Andry. [address], [place], [id number], [place]. tel:[phone] Referring Provider: Andry Pulliam OD P, [address] [place], [address] . tel:[phone] Office/outpa tient Visit, [facility] [place], [address], [place], [place], [address], [place] tel:[phone] [facility] No Information 2 Heraclio OD Andry. [address], [place], [address], [place]. tel:[phone] Referring Provider: Andry Pulliam OD P, [address] [facility], [place], [address] . tel:[phone] Office/outpa tient Visit, [facility], [address] [place] [address] [address], [place], [place], [id number], tel:[phone] [facility] [place] No Information 8-201 0 Mulqueeny OD Andry. [address] [facility], [place], [address], [place]. tel:[phone] Referring Provider: Andry Pulliam OD P, [address] [facility], [place], [address] . tel:[phone] Office/outpa tient Visit, [facility], [address] [place] [address] [address], [place], [place], [address], [place] tel:[phone] [facility] No Information 7-200 9 Mulqueeny OD Andry. [address] [facility], [place], [place], [address], [place]. tel:[phone] Referring Provider: Andry Pulliam OD P, [address] [facility], [place], [address] . tel:[phone] Office/outpa tient Visit, [facility], [address] [place] [address] [address], [place], [place], [address], [place] tel:[phone] [facility] [place] No Information 8-200 9 Mulqueeny OD Andry. [address] [facility], [place], [address], [place]. tel:[phone] Referring Provider: Andry Pulliam OD P, [address] [facility], [place], [address] . tel:[phone] Office/outpa tient Visit, Est [facility], [address], [place], [place], [address], [place] tel:[phone] [facility] No Information Mar-1 7-200 8 Mulqueeny OD Andry. [address] [facility], [place], [address], [place]. tel:[phone] Referring Provider: Andry Pulliam OD P, [address] [facility], [place], [address] . tel:[phone] [facility], [address], [place], [place], [address], [place] tel:[phone] [facility] No Information 8-200 8 Mulqueeny OD Andry. [address] [facility], [place], [address], [place]. tel:[phone] Referring Provider: Andry Pulliam OD P, [address] [facility], [place], [address] . tel:[phone] [facility], [address], [place], [place], [address], [place] tel:[phone] [facility] No Information 1 9-200 8 Mulqueeny OD Andry. [address] [facility], [place], [address], [place]. tel:[phone] Referring Provider: Andry Pulliam OD P, [address] [facility], [place], [address] . tel:[phone] [facility], [address], [place], [place], [address], [place] tel:[phone] [facility] No Information September-0 6-200 8 Mulqueeny OD Andry. [address] [facility], [place], [address], [place]. tel:[phone] Referring Provider: Andry Pulliam OD P, [address] [facility], [place], [address] . tel:[phone] [facility], [address], [place], [place], [address], [place] tel:[phone] [facility] No Information 3-200 8 Mulqueeny OD Andry. [address] [facility], [place], [place], [address], [place]. tel:[phone] Referring Provider: Andry Pulliam OD P, [address] [facility], [place], [address] . tel:[phone] [facility], [address], [place], [place], [address], [place] tel:[phone] [facility] No Information 7-200 8 Mulqueeny OD Andry. [address], [place], [address], [place]. tel:[phone] Referring Provider: Andry Pulliam OD P, [address] [facility], [place], [address] . tel:[phone] [facility], [address], [place], [place], [address], [place] tel:[phone] [facility] No Information 4200 8 Mulqueeny OD Andry. [address] [facility], [place], [place], [address], [place]. tel:[phone] Referring Provider: Andry Pulliam OD P, [address] [facility], [place], [address] . tel:[phone] [facility], [address], [place], [place], [address], [place] tel:[phone] [facility] No Information Oct-2 2-200 7 Mulqueeny OD Andry. [address], [place], [address], [place]. tel:[phone] Referring Provider: Andry Tyvinod OD P, [address] [place], [address] . tel:[phone] [facility], [address], [place], [place], [address], [place] tel:[phone] [facility] No Information Oct-0 2-200 7 Mulqueeny OD Andry. [address], [place], [address], [place]. tel:[phone] Referring Provider: Andry Pulliam OD P, [address] [place], [address] . tel:[phone] [facility], [address], [place], [place], [address], [place] tel:[phone] [facility] No Information Aug-2 1-200 7 Mulqueeny OD Andry. [address], [place], [address], [place]. tel:[phone] [facility], [address], [place], [place], [address], [place] tel:[phone] [facility] No Information Aug-0 1-200 7 Mulqueeny OD Andry. [address], [place], [address], [place]. tel:[phone] [facility], [address], [place], [place], [address], [place] tel:[phone] [facility] No Information Reinaldo-2 4-200 7 Mulqueeny OD Andry. [address], [place], [address], . tel:[phone] [facility], [address] [place], [place] [address], [place], [place], [address], tel:[phone] [facility] No Information 0[address] [facility] . [address] [place], [place], [address], . tel:[phone] Referring Provider: Andry Day, [address] [place], [address] . tel:[phone] [facility], [address] [place] [address] [address], [place], [place], [address], tel:[phone] [facility] No Information 7 Heraclio Wilde. [address], [place], [address], . tel:[phone] Family History Family Member Type Diagnosis Age At Onset Aunt Problem (finding) glaucoma Payers Payer name Insurance type Covered constitution party ID Authordenise elkins(s) Naeemtna [id number] Social History Type Description Quantity Date Captured Comments Alcohol Use Details No 2 beers monthly Caffeine Use Details No Tobacco Use Status No Information Smoking Status No Information Sex Male Chief Complaint And Reason For Visit No Information Reason For Referral Reason For Referral No Information History Of Present Illness Encounter Date Complaint History Of Prese nt Illness No Information Functional Status Date Functional Assessmen t No Information Instructions Date Instruction Additional Infor mation DMII OPHTH NT [facility] NTRL PAVING STONE DEGENERAT PRESBYOPIA - 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 for Complete Exam. Related to PRESBYOPIA Assessments Type Assessment Date No Information Patient Care Teams Name Effective Dates (start - stop) Status Members No Information
--- OUTSIDE RECORDS SUMMARY | 2025-01-25 07:51 | XMS_ITS | Clinical Summary ---
Author Organization [facility] Care Team Providers Care Grain Blender Name Role Phone Unavailable Primary Care Provider [...]
--- OUTSIDE RECORDS SUMMARY | 2025-01-25 07:51 | XMS_ITS | Encounter Summary ---
Author Organization [facility] Healthcare Address [address] [place] [address] Care Team Providers Care Finishing Machine Operator Name Role Phone Kimo Barakat MD Primary Care Provider [phone] Encounter Details Date Type Department Care Team (Late st Contact Info) Description 12/27/2024 Results Follow-Up [facility] Medical Group Cardiology [address] [facility] [address], [place] [address] Herman Julian MD [address] [facility] [address] [place] [address] SCAN - RADIOLOGY/IMAGING Social History Tobacco Use Types Packs/Day Years Used Date Smoking Tobacco: Former Cigarettes Smokeless Tobacco: Never Alcohol Use Standard Drinks/Week Comments Yes 3 (1 standard drink = 0.6 oz pur e alcohol) Sex and Gender Information Value Date Recorded Sex Assigned at Not on file 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
--- OUTSIDE RECORDS SUMMARY | 2025-01-25 07:51 | XMS_ITS | Clinical Summary ---
Author Organization [facility] Address [address] [facility] [place] [address] Care Team Providers Care Asphalt Paving Supervisor Name Role Phone Laura Dsouza RN Unavailable [phone] Lb Kelley MD Unavailable Unavailable Dev Lester MD Primary Care Provider [phone] Source Comments [facility],non-owned Affiliates and Associated Physician Practices is amultiple site organization consisting of ambulatory clinics and hospital sitesin [place], [place], [place] and [place]. 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 Gender Identity Not on file Sexual Orientation Not on file Last Filed Vital Signs Vital Sign Reading Time Taken Comments Blood Pressure 140/80 08/29/2013 2:38 PM CDT Pulse 75 08/29/2013 2:38 PM CDT Temperature 36.6 C (97.8 F) 07/18/2013 7:30 AM DYE HOUSE VAT WORKER Respiratory Rate 15 08/29/2013 2:38 PM CDT Oxygen Saturation 98% 08/29/2013 2:38 PM CDT Inhaled Oxygen Concentration 40% 07/12/2013 4 :15 PM DYE HOUSE VAT WORKER Weight 73.9 kg (163 lb) 08/29/2013 2:38 [...] age to complete this topic Insurance [employer] [facility] Address: [facility] [id number] [place] [phone] Advance Directives * Full Code (Latest Code Status on File) Date Activated Date Inactivated Comments 07/12/2013 12:29 PM 07/18/2013 1:13 PM * Full Code Date Activated Date Inactivated Comments 07/10/2013 5:47 PM 07/12/2013 12:29 PM Care Teams Asphalt Paving Supervisor Relationship Specialty Start Date End Date Dev Lester MD [address] [phone] PCP - General Family Medicine 08/29/13 Laura Dsouza RN Jewelry Bench Worker 07/11/13 Lb Kelley MD Utility Operator Cardiovascular Disease 07/11/13
--- OUTSIDE RECORDS SUMMARY | 2025-01-25 07:51 | XMS_ITS | Clinical Summary ---
Author Organization [facility] [address] Address [address] [place] [address] Care Team Providers Care Repairer Typewriter Name Role Phone Kimo Barakat MD Primary Care Provider [phone] Allergies Active Allergy Reactions Criticality Noted Date Comments Codeine Nausea And Vomiting Low 07/10/2013 Metformin Diarrhea Low 01/11/2025 Medications aspirin 81 mg tablet take 1 tablet by oral route every day 0 0 10/19/19 14 Active multivitamin tablet tablet take 1 tablet by oral route every day with food 0 0 01/15/20 15 Active amLODIPine (NORVASC) 10 mg tablet take 1 tablet by oral route every day 90 3 04/23/20 15 Active metoprolol (LOPRESSOR) 25 mg tablet take 1 tablet by ORAL route 2 times every day 180 3 01/17/20 14 Active lisinopril (PRINIVIL,ZEST RIL) 10 mg tablet take 1 tablet by oral route every day 90 3 01/15/20 15 Active cholecalcifero l (VITAMIN D-3) 5,000 unit capsule Take 1 capsule (5,000 Units total) by mouth daily Active vit C/E/Zn/coppr/l utein/zeaxan (PRESERVISION AREDS-2 ORAL) Take 1 tablet by mouth 2 (two) times a day Active Jardiance 25 mg tablet Take 1 tablet (25 mg total) by mouth every morning 06/05/19 21 Active zinc 50 mg tablet Take 1 tablet by mouth daily Active glucosamine-ch ondroitin 250-200 mg tablet Take 1 tablet by mouth daily Osteo bi-flex Active UNABLE TO FIND Total Beets 650 mg in the morning Active rosuvastatin (CRESTOR) 20 mg tablet Take 1 tablet (20 mg total) by mouth every other day 90 tablet 1 07/09/19 25 Active Additional Information Patient taking differently:20 mg oralEvery 48 hours, Informant: Self, Reported on 01/18/2025 glipiZIDE XL (GLUCOTROL XL) 5 mg 24 hr tablet Take 1 tablet (5 mg total) by mouth daily 10/02/19 Active FreeStyle Lite Strips strip TEST ONE TIME DAILY 11/03/19 Active FreeStyle Lite Meter kit as directed 11/01/19 Active freestyle 28 gauge lancets USE ONCE DAILY TO CHECK BLOOD SUGAR 11/14/19 Active magnesium gluconate 200 mg tabletIndicati ons:hypomagnes emia Take 2.5 tablets (500 mg total) by mouth daily Active vitamin B complex capsule Take 1 capsule by mouth daily Active UNABLE TO FIND Med Name: calcium 1200mg once daily Active turmeric, bulk, 95 % powder 025 Discontinued C-Zn-K.ginseng -darrion [facility]-hrb62 75 mg tablet Take by mouth Ginseng Complex 025 Discontinued Active Problems Problem Noted Date Diagnosed Date Abnormal stress test 12/27/2024 Pulmonary hypertension 10/30/2024 RBBB 11/15/2018 Premature atrial contractions 11/15/2018 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 Coronary artery disease invo lving [place] coronary artery of [place] heart without angina pectoris 11/08/2016 Statin intolerance 11/08/2016 Type 2 diabetes mellitus 10/21/2015 Overview (09/03/2016): DM type 2 with diabetic dyslipidemia Hx of CABG 10/18/2013 Overview (09/03/2016): S/P CABG (coronary artery bypass graft) Mixed diabetic hyperlipidemi a associated with type 2 diabetes mellitus ([facility]) 10/18/2013 Overview (09/03/2016): Dyslipidemia Hypertension associated with diabetes 10/18/2013 Overview (09/03/2016): HTN (hypertension), benign Diabetes mellitus 10/18/2013 Overview (09/03/2016): DM (diabetes mellitus) Encounters Date Type Department Care Team Description 01/18/2025 10:00 AM CDT - 01/18/2025 11:30 AM CDT Surgery [facility] Cardiac Catheterization Lab [address] [place] [address] Aakash Hameed MD LEFT HEART CATHETERIZATION WITH CORONARY ANGIOGRAPHY AND WITH OR WITHOUT LEFT VENTRICULOGRAM [id number] 01/18/2025 7:47 AM CDT - 01/18/2025 2:21 PM CDT Hospital Encounter [facility] Cardiac Catheterization Lab [address] [place] [address] Aakash Hameed MD Coronary artery disease involving chick[place] ind[place] coronary artery of [place] heart without angina pectoris (Primary Dx); Abnormal stress test Discharge Disposition: Discharge to home or self care 12/27/2024 Telephone [facility] Cardiology [address] [place] [address] [place] [phone] Krista Cleary MD 12/27/2024 Results Follow-Up [facility] Cardiology [address] [place] [address] [place] [phone] Krista Cleary MD SCAN - RADIOLOGY/IMAGING 12/20/2024 Orders Only [facility] Health Information Management [address] [place] [address] Krista Cleary MD 12/04/2024 Results Follow-Up [facility] Cardiology [address] [place] [address] [place] [phone] Krista Cleary MD Transthoracic Echo (TTE) Complete W Doppler/CF 12/03/2024 11:15 AM CDT Ancillary Procedure [facility] Cardiology [address] [place] [address] [address] [place] [address] RBBB; Hypertension associated with diabetes (HCC); Coronary artery disease involving chick[place] indians[place] division coronary artery of [place] heart without angina pectoris; Pulmonary hypertension (HCC) 10/30/2024 10:15 AM CDT Office Visit [facility] Cardiology [address] [place] [address] [address] [place] [address] Krista Cleary MD RBBB (Primary Dx); Type 2 diabetes mellitus with hyperglycemia, unspecified whether long winder tender insulin use (HCC); Premature atrial contractions; Mixed diabetic hyperlipidemia associated with type 2 diabetes mellitus (CMS/HCC) (HCC); Hypertension associated with diabetes (HCC); Coronary artery disease involving chick[place] indians[place] division coronary artery of chick[place] heart without angina pectoris; Statin myopathy; Pulmonary hypertension (HCC) from Last 3 Months Immunizations Immunization Administration Dates Next Due Influenza, Trivalent, IM (MDV) 04/26/2010 Td, adsorbed 04/26/2010 Surgical History Surgery Date Site/Laterality Comments EYE SURGERY CORONARY ARTERY BYPASS GRAFT CARDIAC CATHETERIZATION 01/18/2025 N/A Procedure: LEFT HEART CATHETERIZATION WITH CORONARY ANGIOGRAPHY AND WITH OR WITHOUT LEFT VENTRICULOGRAM [id number]; Surgeon: Aakash Hameed MD; Location: [facility]; Service: Cardiovascular; Laterality: N/A; Medical devices from this surgery are in the Medical Devices section. CARDIAC CATHETERIZATION 01/18/2025 N/A Procedure: CORONARY ARTERY AND GRAFT ANGIOGRAPHY [id number]; Surgeon: Aakash Hameed MD; Location: [facility]; Service: Cardiovascular; Laterality: N/A; Medical devices from this surgery are in the Medical Devices section. CARDIAC CATHETERIZATION 01/18/2025 N/A Procedure: ULTRASOUND GUIDANCE FOR VASCULAR ACCESS S&I [id number]; Surgeon: Aakash Hameed MD; Location: [facility]; Service: Cardiovascular; Laterality: N/A; Medical devices from this surgery are in the Medical Devices section. Medical History Medical History Date Comments Hx Other Medical 1992 eye surgery Hx Other Medical 2006 mulqueeny Hyperlipidemia Hyperlipidemia Diabetes mellitus (HCC) Diabetes Hypertension Hypertension Abnormal stress test Motion sickness Type 2 diabetes mellitus Family History Medical History Relation Name Comments [...] Answered Alcohol Use Standard Drinks/Week Comments Yes 2 (1 standard drink = 0.6 oz pur e alcohol) AUDIT-C Answer Date Recorded Q1: How often do you have a drink containing alc ohol? 2-4 times a month 01/11/2025 Q2: How many drinks containi ng alcohol do you have on a typical day when you are drinking? 3 or 4 01/11/2025 Q3: How often do you have si x or more drinks on one occasion? Never 01/11/2025 Personal Safety Answer Date Recorded Have you ever been in or are you currently in a harmful physical or emotional relationship or is someone making you feel afraid or unsafe? 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 Gender Identity Not on file Sexual Orientation Not on file Obstetrics History Last Filed Vital Signs Vital Sign Reading Time Taken Comments Blood Pressure 125/62 01/18/2025 1:40 PM CDT Pulse 80 01/18/2025 1:40 PM CDT Temperature 36.4 C (97.5 F) 01/18/2025 8:00 AM CDT Respiratory Rate 18 01/18/2025 8:00 AM CDT Oxygen Saturation 94% 01/18/2025 1:40 PM CDT Inhaled Oxygen Concentration - - Weight 74.6 kg (164 lb 8 oz) 01/18/2025 8:00 AM CDT Height 177.8 cm (5' 10) 01/18/2025 8:00 AM CDT Body Mass Index 23.6 01/18/2025 8:00 AM CDT Plan of Treatment Health Maintenance Due Date Last Done Comments Albumin Creatinine Ratio, Urine 1950 Colon Cancer Screening-Colonoscopy 1950 Depression Screening 1950 Hemoglobin A1C 1950 Hepatitis C Screening 1950 Dilated Eye Exam 1950 Foot Exam 1950 Hepatitis B Screening 1967 Abdominal Aortic Aneurysm (A AA) Screen 2014 Well Visit 65+ 2014 Pneumococcal vaccine 65+ (2 of 2 - PCV) 05/28/2022 05/28/2021, 07/14/2013 Zoster Vaccine (3 of 3) 11/30/2022 10/05/2022, 02/12 Covid-19 Vaccine (2023-2 5 season) 2024 05/10/2023, 02/15/2022, 04/20/2021, Additional history exists Influenza Vaccine (#1) 2025 , 03/15/2023, 03/14/2020, Additional history exists Lipid Panel 10/30/2025 10/30/2024, 05/05/2023, 10/12/2022, Additional history exists Fall Risk Assessment 01/18/2026 01/18/2025 eGFR 01/18/2026 01/18/2025 DTaP/Tdap/Td Vaccine (2 - Td or Tdap) 02/12/2031 02/12/2021, 04/26/2010 Medical Devices Implanted Type Area Aircraft Systems Technician Device Identifier Shelf Expiration Date Model / Serial / Lot [employer] System Closure Repair Femoral Artery Suture Mediated Perclose Prostyle 41632-98 - [id number] Implanted:Qty: 1 on 01/18/2025 by Aakash Hameed MD at [facility] [employer] 11/26/2026 [id number] / / [id number] Procedures Procedure Name Priority Date/Time Associated Diagnosis Comments POCT GLUCOSE DEVICE Routine 01/18/2025 1 1:04 AM CDT VASCULAR ACCESS US GUIDANCE Routine 01/18/2025 10:40 AM CDT Abnormal stress test RIGHT CORONARY ANGIOGRAPHY Routine 01/18/2025 10:40 AM CDT Abnormal stress test LEFT HEART CATHETERIZATION WITH CORONARY ANGIOGRAPHY AND WITH AND WITHOUT LEFT VENTRICULOGRAM Routine 01/18/2025 10:40 AM CDT Abnormal stress test MODERATE SEDATION SAME MD ROMERO ADDL 15 MIN [id number] 01/18/2025 9:47 AM CDT Abnormal stress test MODERATE SEDATION 01/18/2025 9:4 7 AM CDT Abnormal stress test EGFR STAT 01/18/2025 8:22 AM CDT DIFFERENTIAL AUTO STAT 01/18/2025 8:2 2 AM CDT CBC WITH AUTO DIFFERENTIAL STAT 01/18/2025 8:22 AM CDT BASIC METABOLIC PANEL STAT 01/18/2025 8:22 AM CDT POCT GLUCOSE DEVICE Routine 01/18/2025 7 :59 AM CDT CARDIOLOGY DOCUMENT SCAN 12/20/2024 SCAN - RADIOLOGY/IMAGING 12/20/2024 TRANSTHORACIC ECHO (TTE) COMPLETE W DOPPLER/CF WO CONTRAST Routine 12/03/2024 12:10 PM CDT RBBB Hypertension associated with diabetes (HCC) Coronary artery disease involving [place] coronary artery of [place] heart without angina pectoris Pulmonary hypertension (HCC) ELECTROCARDIOGRAM REPORT Routine 025 12:54 PM CDT RBBB Coronary artery disease involving chick[place] indians[place] division coronary artery of chick[place] heart without angina pectoris POCT LIPID PANEL Routine 10/30/2024 10:0 8 AM CDT Mixed diabetic hyperlipidemia associated with type 2 diabetes mellitus (CMS/HCC) (HCC) Coronary artery disease involving chick[place] indians[place] coronary artery of chick[place] heart without angina pectoris from Last 3 Months Results * POCT glucose (01/18/2025 11:04 AM CDT) Glucose, POC 127 70 - 199 mg/dL Blood 01/18/2025 11:0 4 AM CDT 01/18/2025 11:04 AM CDT us Aakash Hameed MD LAB POCT ORDERABLES - DEVICE Fin al Result [facility] [id number] [place] [address] * LEFT HEART CATHETERIZATION WITH CORONARY ANGIOGRAPHY AND WITH AND WITHOUT LEFT VENTRICULOGRAM, RIGHT CORONARY ANGIOGRAPHY, VASCULAR ACCESS US GUIDANCE (01/18/2025 10:40 AM CDT) Anatomical Region Laterality Modality X-Ray Angiograph y Narrative 01/18/2025 11:06 AM CDT CARDIAC CATHETERIZATION REPORT Cyrus Coleman IP ENCOUNTER: @CSN@ Date of Procedure: 01/18/2025 BIRTHDATE: 1950 BATTERY CONTAINER FINISHING HAND: Aakash Hameed MD REFERRING PHYSICIAN: Dr. Cleary PREPROCEDURE DIAGNOSES: Abnormal Nuclear Stress Test PROCEDURES PERFORMED: Moderate sedation that started at 1010 and ended at 1040 using 2mg of Versed and 100mcg of fentanyl. The registered nurse was Bola Osorio. Selective left and right coronary angiogram. Left heart catheterization with measurement of LVEDP and gradient across the aortic valve. Bypass angiography Ultrasound-guided arterial access Moderate sedation FINDINGS: 1. Left main: The left main coronary artery has 90% distal stenosis. 2. Left anterior descending: The LAD has 30-40% proximal stenosis. The remainder of the LAD is supplied by a patent FRANCIS 3. Left circumflex: The left circumflex artery is a nondominant vessel. OM1 was severe proximal stenosis. The remainder of the OM1 vessel in its branches are supplied by the SVG graft. This graft is not retro fill the remainder of the left circumflex system due to severe proximal OM1 disease. The proximal left circumflex has diffuse 30% stenosis. OM2 is a small caliber vessel with severe stenosis. The remainder of the left circumflex has luminal irregularities. 4. Right coronary artery: The RCA is a dominant vessel occluded at the ostium. There are [id number] collaterals filling the distal RCA. 5. Grafts: A. FRANCIS-LAD patent B. SVG-OM1 patent C. SVG-RCA occluded 6. Left ventricle: A. End-diastolic pressure 14 mmHg. B. LV gram deferred. C. No significant gradient across aortic valve on catheter pullback. 7. Opening aortic pressure 118/56 and closing aortic pressure 111/65 8. Right iliofemoral angiogram: No significant stenosis in the visualized portions of the right common femoral artery, proximal SFA, proximal profundus, and external iliac arteries. Adequate puncture site for vascular closure device. ACCESS: Right common femoral artery COMPLICATIONS: None ESTIMATED BLOOD LOSS: 5 mL PROCEDURAL DESCRIPTION: Informed consent was obtained from patient. Patient was then brought into the medical lab tech instructor and was draped and prepped in the usual manner. Moderate sedation was given and the right groin was subcutaneously injected with 1% lidocaine. The right common femoral artery was accessed using a 5Fr sheath via a micropuncture needle and modified Seldinger technique under ultrasound and fluoroscopy guidance. Selective left coronary angiogram was done using a JL4 catheter with the tip of the catheter placed in the left main coronary artery. Selective right coronary angiogram was done using JR4 catheter with the tip of the catheter placed in the right coronary artery. The JR4 catheter was then advanced across the aortic valve over a J-tip wire for measurement of the LVEDP and gradient across the aortic valve. The JR4 catheter was then used to engage the SVG to OM1 graft followed by SVG to RCA graft and finally FRANCIS to LAD. A pigtail catheter was then advanced into the proximal ascending aorta for a aortic root angiogram to ensure no other aorto coronary grafts are visualized. At the end of the procedure a Perclose device was used to achieve hemostasis. CONCLUSIONS Occluded SVG to RCA graft. Remaining grafts patent. [id number] collaterals supplying the RCA territory. PLAN Continue aggressive medical therapy and risk factor modification. us Aakash Hameed MD CV CARDIAC CATH PROCEDURES Final Result * eGFR (01/18/2025 8:22 AM CDT) eGFR 90 >=60 mL/min/1. 73 m2 Comment: Interpretive Data Reference Interval Normal >/= 90 mL/min/1.73m2 Mildly decreased* 60 - 89 mL/min/1.73m2 Mildly to moderately decreased 45 - 59 mL/min/1.73m2 Moderately to severely decreased 30 - 44 mL/min/1.73m2 Severely decreased 15 - 29 mL/min/1.73m2 Kidney Failure < 15 mL/min/1.73m2 *Relative to young adult level Estimated glomerular filtration rate is determined by the 2020 CKD-EPI equation recommended by the National Kidney Foundation (A Unifying Approach to GFR Estimation: Recommendations of the NKF-ASK Task Force on Reassessing the Inclusion of Race in Diagnosing Kidney Disease, JASN 2020). The CKD-EPI equation should not be used for patients with unstable renal function and has not been validated in children and those over 70. Current interpretive data was last reviewed 2021. Blood 01/18/2025 8:22 AM CDT 01/18/2025 8:22 AM CDT us Aakash Hameed MD LAB BLOOD ORDERABLES Final Resul t [facility] [id number] [place] [address] * (ABNORMAL) Differential, auto (01/18/2025 8:22 AM CDT) Neutrophil abs 6.71(H) 1.50 - 6.50 K/cumm Imm gran abs 0.03 0.00 - 0.10 K/cumm [facility] Lymphocyte abs 1.75 0.80 - 3.30 K/cumm [facility] Monocyte abs 0.52 0.20 - 0.80 K/cumm [facility] Eosinophil abs 0.17 0.00 - 0.50 K/cumm [facility] Basophil abs 0.03 0.00 - 0.10 K/cumm [facility] Neutrophil pct 73.0 % [facility] Comment: Interpretive Data Percent cell count reference ranges are not reported, since discordance with absolute values may lead to misinterpretation of CBC data. Current Interpretive Data was last revised on 2017. Imm gran pct 0.3 % [facility] Comment: Interpretive Data Percent cell count reference ranges are not reported, since discordance with absolute values may lead to misinterpretation of CBC data. Current Interpretive Data was last revised on 2017. Lymphocyte pct 19.0 % [facility] Comment: Interpretive Data Percent cell count reference ranges are not reported, since discordance with absolute values may lead to misinterpretation of CBC data. Current Interpretive Data was last revised on 2017. Monocyte pct 5.6 % [facility] Comment: Interpretive Data Percent cell count reference ranges are not reported, since discordance with absolute values may lead to misinterpretation of CBC data. Current Interpretive Data was last revised on 2017. Eosinophil pct 1.8 % [facility] Comment: Interpretive Data Percent cell count reference ranges are not reported, since discordance with absolute values may lead to misinterpretation of CBC data. Current Interpretive Data was last revised on 2017. Basophil pct 0.3 % [facility] Comment: Interpretive Data Percent cell count reference ranges are not reported, since discordance with absolute values may lead to misinterpretation of CBC data. Current Interpretive Data was last revised on 2017. Blood 01/18/2025 8:22 AM CDT 01/18/2025 8:22 AM CDT Aakash Hameed MD LAB BLOOD ORDERABLES Final Resul t Performing Organization Address [facility] Co de Phone Number [facility] [id number] [place] [address] * (ABNORMAL) CBC with auto differential (01/18/2025 8:22 AM CDT) WBC 9.21 3.80 - 9.90 K/cumm Hgb 17.4 13.0 - 17.5 g/dL [facility] Hct 51.7(H) 38.9 - 50.3 % [facility] Plt 141(L) 150 - 400 K/cumm [facility] MPV 10.5 9.1 - 12.3 fL [facility] RBC 5.85(H) 4.30 - 5.80 M/cumm [facility] MCV 88.4 81.3 - 96.4 fL [facility] MCH 29.7 27.1 - 33.3 pg [facility] MCHC 33.7 32.3 - 35.7 g/dL [facility] RDW CV 12.2 11.1 - 14.9 % [facility] RDW SD 39.6 35.7 - 48.1 fL [facility] NRBC abs 0.00 0.00 - 0.01 K/cumm [facility] Blood 01/18/2025 8:22 AM CDT 01/18/2025 8:22 AM CDT Narrative [facility] - 01/18/2025 8:27 AM CDT If most recent labs were drawn prior to 4 AM, draw only prior to initiating procedure. Aakash Hameed MD LAB BLOOD ORDERABLES Final Resul t Performing Organization Address [facility]/ZIP Co de Phone Number [facility] [id number] [place] [address] * (ABNORMAL) Basic metabolic panel (01/18/2025 8:22 AM CDT) Sodium 146(H) 135 - 145 mmol/L Potassium, pl 3.9 3.3 - 4.9 mmol/L [facility] Chloride 109 97 - 110 mmol/L [facility] CO2 24 22 - 32 mmol/L [facility] Anion gap 13 2 - 15 mmol/L [facility] BUN 15 6 - 25 mg/dL [facility] Creatinine 0.86 0.80 - 1.30 mg/dL [facility] Glucose 146 70 - 199 mg/dL [facility] Comment: Interpretive Data Fasting glucose >/= 126 mg/dl is diagnostic for diabetes. Fasting is defined as no caloric intake for at least 8 hours. Fasting glucose between 100 mg/dl to 125 mg/dl is diagnostic of prediabetes. In a patient with classic symptoms of hyperglycemia or hyperglycemic crisis, a random glucose >/= 200 mg/dl is diagnostic for diabetes. In the absence of unequivocal hyperglycemia, results should be confirmed by repeat testing. The classification and Diagnosis of Diabetes Diabetes Care 2021; 46: S19-S40. Current interpretive data was last revised 2022. Calcium 9.2 8.5 - 10.3 mg/dL [facility] Blood 01/18/2025 8:22 AM CDT 01/18/2025 8:22 AM CDT us Aakash Hameed MD LAB BLOOD ORDERABLES Final Resul t [facility] [address] [place] [address] * POCT glucose (01/18/2025 7:59 AM CDT) Glucose, POC 144 70 - 199 mg/dL Blood 01/18/2025 7:59 AM CDT 01/18/2025 7:59 AM CDT Aakash Hameed MD LAB POCT ORDERABLES - [place] [address] [address] [place] [address] * SCAN - RADIOLOGY/IMAGING (12/20/2024) Anatomical Region Laterality Modality Other us Krista Cleary MD Final Res ult * Cardiology Document Scan (12/20/2024) Anatomical Region Laterality Modality Other us Krista Cleary MD CV CARDIAC [facility] Final Result * TRANSTHORACIC ECHO (TTE) COMPLETE W DOPPLER/CF WO CONTRAST (12/03/2024 12:10 PM CDT) EF Mod BP 71 % CONS SCIMAGE Anatomical Region Laterality Modality Ultrasound 12/03/2024 11:2 6 AM CDT Narrative 12/03/2024 12:47 PM CDT [facility] Cardiology [address] [facility] [address] [address] [address] [facility] [address], [place] [address] P:[phone] P:[phone] Echocardiographic Report Patient Name: CYRUS COLEMAN L : 1950 Study Date: 12/03/2024 11:26:49 AM Gender: M Paediatric Thoracic Physician: Aster Low (Virginie)(CT), [facility] Location: [place] Ref Provider: KRISTA CLEARY Height(Cm): 178 BSA: 1.94 [...] endocrine disorders, I25.10 Atherosclerotic heart disease of [place] coronary artery without angina pectoris, and I27.20 [...] FINDINGS: Interpretation Site: Exam was interpreted at [facility]. Left Ventricle: Normal left ventricular systolic function. [...] regurgitation. Electronically Signed By: Dr. Nathan Biggs [facility] 12/03/2024 12:46:34 PM CDT Procedure Note Nathan Biggs MD - 12/03/2024 [facility] Cardiology [address], [place] [address] [address] [facility] [address], [place] [address] P:[phone] P:[phone] Echocardiographic Report Patient Name: CYRUS COLEMAN L : 1950 Study Date: 12/03/2024 11:26:49 AM Gender: M Paediatric Thoracic Physician: Aster Lujan)(CT), [facility] Location: [facility] Provider: KRISTA CLEARY Height(Cm): 178 BSA: 1.94 Weight(Kg): 76.2 Heart Rate: 57 BP: 130 / 68 Quality: Good Order Provider: KRISTA CLEARY PROCEDURES: Echocardiographic Report: Transthoracic echocardiogram with complete 2D, M-Mode, and color Dopplerexamination. With Strain Analysis. INDICATIONS: I45.10 Unspecified right bundle-branch block, E11.59 Type 2 diabetesmellitus with other circulatory complications, I15.2 Hypertension secondary to endocrinedisorders, I25.10 Atherosclerotic heart disease of chick[place] coronary artery without anginapectoris, and I27.20 Pulmonary [...] FINDINGS: Interpretation Site: Exam was interpreted at [facility]. Left Ventricle: Normal left ventricular systolic function. [...] regurgitation. Electronically Signed By: Dr. Nathan Biggs [facility] 12/03/2024 12:46:34 PM CDT Krista Cleary MD [...] Final Result from Last 3 Months Insurance [facility] Advance Directives For more information, please contact: [phone] * Full Code (Latest Code Status on File) Date Activated Date Inactivated Comments 01/18/2025 11:15 AM 01/18/2025 6:22 PM Care Teams Repairer Typewriter Relationship Specialty Start Date End Date Kimo Barakat MD PCP - General Family Practice 10/22/21
--- OUTSIDE RECORDS SUMMARY | 2025-01-25 07:51 | XMS_ITS | Encounter Summary ---
Author Organization [facility] Healthcare Address [address] [place] [id number] Care Team Providers Care Plasterer Spray Gun Name Role Phone Kimo Barakat MD Primary Care Provider [phone] Encounter Details Date Type Department Care Team (Latest Contact Info) Description 12/04/2024 Results Follow-Up [facility] Medical Group Cardiology [address] [facility] [address], [place] [phone] Herman Julian MD [address] [facility] [address] [place] [address] Transthoracic Echo (TTE) Complete W Doppler/CF Social History Tobacco Use Types Packs/Day Years Used Date Smoking Tobacco: Former Cigarettes Smokeless Tobacco: Never Alcohol Use Standard Drinks/Week Comments Yes 3 (1 standard drink = 0.6 oz pur e alcohol) Sex and Gender Information Value Date Recorded Sex Assigned at Not on file 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
== END 2025-01-25 07:45 | disposition home or self-care (01) ==
LOC: ANHAUDASC 07:45
PROVIDERS: PCP Family Medicine; Visit Provider Family Medicine
DX: H91.90 Unspecified hearing loss, unspecified ear (principal)
CPT/HCPCS: 92557; 92567